=== PATIENT | male | born 1970 | race Hispanic/Latino ===

== ENCOUNTER 2017-02-08 03:50 | Inpatient (IN) | payer BC, SELFPAY ==
[2017-02-08] MEDS ORDERED: Ondansetron HCl/PF 4 MG/2 ML Vial ONE ×3 (04:15→16:15)
[2017-02-08] MEDS ORDERED: Ketorolac Tromethamine 30 MG/ML VIAL ONE ×2 (04:15→14:11)
[2017-02-08 04:22] LABS: #Lymphocytes 1.5 thou/uL (1.20-3.40); #Monocytes 0.3 thou/uL (0.11-0.59); #Neutrophils 8.3 thou/uL (1.40-6.50); %Basophils 0.2 % (0.0-1.0); %Eosinophils 0.3 % (0.0-10.0); %Monocytes 2.8 % (0.0-10.0); Hematocrit 43.3 % (42.0-52.0); Mean Platelet Volume 7.1 fL (7.4-10.4); Red Blood Cell (RBC) Count 4.62 mill/uL (4.70-6.10); White Blood Cell (WBC) Count 10.1 thou/uL (4.8-10.8)
[2017-02-08 04:36] LABS: ALT (SGPT) 56 U/L (8-55); AST (SGOT) 32 U/L (5-34); Alkaline Phosphatase 57 U/L (40-150); Anion Gap 12 mmol/L (10-20); BUN (Urea Nitrogen) 15 mg/dL (8.9-20.6); Bilirubin, Total 0.4 mg/dL (0.2-1.2); CK (CPK) 231 U/L (30-200); Calc. Creatinine Clearance 0 mL/min (70-130); Calcium 9.6 mg/dL (7.8-10.44); Carbon Dioxide 26 mmol/L (22-29); Chloride 102 mmol/L (98-107); Estimated GFR-MDRD 74; Globulin 3.3 g/dL (2.4-3.5); Lipase 17 U/L (8-78); Protein, Total 7.8 g/dL (6.0-8.3)
[2017-02-08 04:39] LABS: Troponin I Less than 0.010 ng/mL (< 0.028)
[2017-02-08] MEDS ORDERED: Morphine 4 MG/ML VIAL ONE (05:11)
[2017-02-08] MEDS ORDERED: Meropenem 1 GM in Sodium Chloride 0.9% 100 ML IVPB SCH ×2 (05:15→13:00)
[2017-02-08 06:14] LABS: Bilirubin Negative (Negative); Blood, Urine Negative (Negative); Glucose, Urine (Dipstick) 100 mg/dL (Negative); Ketone, Urine Trace mg/dL (Negative); Nitrite Negative (Negative); Protein, Urine (Dipstick) Negative (Neg-Trace); Urobilinogen 0.2 mg/dL (0.2-1.0)
[2017-02-08 07:38] VITALS: BMI 26.6
[2017-02-08] MEDS ORDERED: Morphine 4 MG/ML VIAL SLOW IVP PRN ×3 (08:18→15:34)
[2017-02-08] MEDS ORDERED: Ondansetron HCl/PF 4 MG/2 ML Vial IVP PRN ×2 (08:19→15:34)
[2017-02-08] MEDS ORDERED: Ondansetron ODT 4 MG TAB SL PRN (08:19)
[2017-02-08] MEDS ORDERED: D5 1/2 NS w/20 mEq KCL 1,000 ML IV SCH ×2 (08:30→15:34)
--- NOTE | 2017-02-08 08:36 | ULT ---
PRELIMINARY REPORT/[facility]/EMERGENCY AFTER HOURS PROCEDURE: EXAM: US Abdomen Limited, Right Upper Quadrant EXAM DATE/TIME: Exam ordered 02/08/2017 4:16 AM CLINICAL HISTORY: 46 years old, male; Pain and signs and symptoms; Nausea and vomiting; Abdominal pain; Localized; Righ t upper quadrant (ruq) TECHNIQUE: Real-time ultrasound of the right upper quadrant with image documentation. COMPARISON: No relevant prior studies available. FINDINGS: Liver: The liver is echogenic compatible with fatty liver. No intrahepatic bile duct dilation. Gallbladder: Multiple calcified gallstones are present. A positive sonographic Vogel sign is reporte d. Gallbladder wall thickness measures approximately 2 mm. Common bile duct: Common bile duct measures up to 4 mm. No stones. No dilation. Pancreas: Unremarkable as visualized. Right kidney: The RIGHT kidney measures 10.5 x 4.3 x 4.5 cm. No stones. No hydronephrosis. IMPRESSION: Cholelithiasis and sludge with a positive Vgoel sign suggestive of acute cholecystitis. Thank you for allowing us to participate in the care of your patient. Dictated and Authenticated by: Kaiden Jung MD 02/08/2017 4:49 AM Central Time ([place] & [place]) FINAL REPORT RIGHT UPPER QUADRANT ULTRASOUND: HISTORY: A 46-year-old male with right upper quadrant pain, nausea and vomiting. Pain is worse after eating. Coarse increased echogenicity throughout the liver, evidence for fatty change. Multiple gallstones a nd sludge within the gallbladder. Common bile duct 0.4 cm. Visualized pancreas and right kidney are unremarkable. IMPRESSION: Multiple cholelithiasis as well as sludge within the gallbladder. Fatty changes in the liver. No si gnificant ductal dilatation. POS: TAHMINA
[2017-02-08] MEDS ORDERED: Fentanyl 250 MCG/5 ML VIAL ONE (13:22)
[2017-02-08] MEDS ORDERED: Midazolam HCl 2 mg/2 ml Vial ONE (13:22)
[2017-02-08] MEDS ORDERED: Iothalamate Meglumine 60% 50 ML VIAL FS ONE (13:24)
[2017-02-08] MEDS ORDERED: Bupivacaine/Epinephrine 0.25% 30 ML VIAL ONE (13:24)
[2017-02-08] MEDS ORDERED: Glycopyrrolate 0.2 MG/ML 5 ML SYRINGE ONE (14:11)
[2017-02-08] MEDS ORDERED: Lidocaine 1% PF 5 ML VIAL ONE (14:11)
[2017-02-08] MEDS ORDERED: Dexamethasone 20 MG/5 ML VIAL ONE (14:11)
[2017-02-08] MEDS ORDERED: Propofol 200 MG/20 ML VIAL ONE (14:11)
--- NOTE | 2017-02-08 14:25 | HP ---
CHIEF COMPLAINT: Right upper quadrant pain. HISTORY OF PRESENT ILLNESS: This is a 46-year-old male with no past medical history, who presents wi th a history of right upper quadrant pain described as severe, sharp, happened after dinner last nigh t, it has been intractable since, associated with nausea, no vomiting, no change in stools, no sick c ontacts, no dysuria, no hematemesis. Denies previous known history of gallstones, jaundice, pancreat itis or liver disease. In the emergency department, found to have an elevation of liver enzymes as w ell as a gallstone on his ultrasound, admitted to my service for cholecystitis. PAST MEDICAL HISTORY: He denies. PAST SURGICAL HISTORY: Denies. MEDICINES: None. ALLERGIES: None. SOCIAL HISTORY: No smoking, alcohol or other drugs. REVIEW OF SYSTEMS: Ten system review of systems is otherwise negative unless described above. PHYSICAL EXAMINATION: VITAL SIGNS: Blood pressure 124/83, pulse 70, respirations 20, temperature 98.8. HEENT: Sclerae are anicteric. Oropharynx clear. NECK: No lymphadenopathy. CHEST: Clear. HEART: Regular rate and rhythm. ABDOMEN: Soft, tender in the right upper quadrant, localized guarding. No rebound. LABORATORY AND X-RAY FINDINGS: Ultrasound shows gallstones, common bile duct of 4 mm. Sodium 136, p otassium 3.6, creatinine 1, bilirubin 0.4, ALT 56, creatine kinase 231. ASSESSMENT: Acute cholecystitis with elevation of his ALT. PLAN: Laparoscopic cholecystectomy with intraoperative cholangiogram. Risks, benefits, alternatives discussed. He gave us consent. We will do this today.
[2017-02-08] MEDS ORDERED: Meperidine HCl/PF 25 MG/ML VIAL SLOW IVP PRN (14:29)
[2017-02-08] MEDS ORDERED: Morphine Sulfate 2 MG/ML SYRINGE SLOW IVP PRN (14:29)
[2017-02-08] MEDS ORDERED: Promethazine HCl 25 MG/ML VIAL SLOW IVP PRN (14:29)
[2017-02-08] MEDS ORDERED: HYDROmorphone 2 MG/ML VIAL SLOW IVP PRN (14:29)
[2017-02-08] MEDS ORDERED: hydrALAZINE 20 MG/ML VIAL SLOW IVP PRN (15:34)
[2017-02-08] MEDS ORDERED: HYDROcodone/Acetaminophen 10/325 mg Tablet PO PRN ×2 (15:34)
[2017-02-08] MEDS ORDERED: Calcium Carbonate 500 MG ChewTAB PO PRN (15:34)
[2017-02-08] MEDS ORDERED: Dextrose 5% in Water 1,000 ML IV PRN (15:34)
[2017-02-08] MEDS ORDERED: Dextrose 50% Abboject 50 ML SYRINGE SLOW IVP PRN (15:34)
[2017-02-08] MEDS ORDERED: Mag-Al 1200 mg/1200 mg/30 ML UDCUP PO PRN (15:34)
[2017-02-08] MEDS ORDERED: Promethazine HCl 25 MG/ML VIAL IM PRN (15:34)
[2017-02-08] MEDS ORDERED: Fentanyl 100 MCG/2 ML VIAL ONE (15:36)
--- NOTE | 2017-02-08 17:27 | RAD ---
INTRAOPERATIVE CHOLANGIOGRAM 02/08/17 COMPARISON: None. HISTORY: Imaging performed in the Operating Room during cholecystectomy. FINDINGS: A single radiograph obtained in the operating room during surgery demonstrates contrast media within the duodenum. There is contrast media within the cystic duct remnant and CBD. There is some contrast media within the pancreatic duct as well. No filling defects are seen within the opacified biliary tr ee. IMPRESSION: No biliary filling defects noted. POS: TAHMINA
[2017-02-08 20:29] VITALS: BP 140/87; TEMP 98.3
[2017-02-08] MEDS ORDERED: Famotidine 20 MG TAB PO SCH (21:00)
[2017-02-08] MEDS ORDERED: Famotidine/PF 20 mg/2ml Vial SLOW IVP SCH (21:00)
--- NOTE | 2017-02-08 23:10 | OP ---
DATE OF PROCEDURE: 02/08/2017 PREOPERATIVE DIAGNOSIS: Acute cholecystitis. POSTOPERATIVE DIAGNOSIS: Acute cholecystitis. PROCEDURE: Laparoscopic cholecystectomy with intraoperative cholangiogram. SURGEON: Zak Duran M.D. ANESTHESIA: General. ESTIMATED BLOOD LOSS: Minimal. COMPLICATIONS: None. SPECIMEN: Gallbladder. FINDINGS: Cholecystitis, normal cholangiogram. TECHNIQUE: The patient was taken to the operating room and placed supine on the table. After genera l anesthetic was obtained, the abdomen was prepped and draped in a sterile fashion. Curved incision made below the umbilicus. Cautery was used to dissect down to and score the fascia. Abdominal cavit y was entered bluntly using a July clamp. Holding stitch of PDS was placed on each side of the fasc ia. Encinas trocar was placed. High-flow pneumoperitoneum was obtained. An upper midline 5-mm port and two right upper quadrant 5-mm ports were placed under direct camera visualization. The gallbladd er was retracted from the gallbladder fossa. The peritoneum was opened anteriorly and posteriorly. The critical view triangle was seen showing only the cystic duct and cystic artery branching from med ial to lateral, no other branching structures. A clip was placed high on the cystic duct. A small d uctotomy was made just proximal to that. A cholangiocatheter was brought in through a separate stab incision and placed in the cystic duct and a cholangiogram was performed which shows good contrast fl ow into the duodenum, right and left hepatic duct system without obstruction. Cholangiocatheter was removed and 2 clips were placed proximally on the cystic duct and one laterally, it was cut using lap aroscopic scissors. Cystic artery was taken in the same way. Cautery was then used to dissect the g allbladder out of the gallbladder fossa. The gallbladder was placed in an Endo catch bag and brought out through the Encinas. There was no bleeding in the liver bed. All port sites were infiltrated us ing local anesthetic. All ports were removed under direct visualization without bleeding. Pneumoper itoneum was let down. PDS was used to close the fascial defect below the umbilicus. All incisions w ere irrigated and closed using 4-0 Monocryl and Dermabond. The patient was en route to recovery in s table condition. All instrument counts, needle counts, and lap counts were correct.
== END 2017-02-08 19:55 | disposition home or self-care (01) | DRG 419 ==
LOC: ERS 03:50 → ERHOLD 05:30 → SJJU 07:46
PROVIDERS: ADMIT Surgery; ATTEND Surgery
PROC: 0FT44ZZ Resection of Gallbladder, Percutaneous Endoscopic Approach (ICD-10-PCS; principal; 2017-02-08)
PROC: BF110ZZ Fluoroscopy of Biliary and Pancreatic Ducts using High Osmolar Contrast (ICD-10-PCS; 2017-02-08)
DX: K81.0 Acute cholecystitis (principal)
CPT/HCPCS: 36415; 47532; 76705; 80053; 81003; 82553; 83690; 84484; 85025; 88304; 96361; 96365; 96375; J1100; J1885; J2001; J2185; J2250; J2270; J2405; J2550; J2704; J3010; J7050; Q9961